=== PATIENT | female | born 1950 | race Caucasian/White ===

== ENCOUNTER 2017-02-27 12:37 | Emergency (ER) | payer SELFPAY ==
[~2017-02-27] VITALS: Ht 152.4 cm; Wt 49.3 kg
[~2017-02-27 12:37] MED LIST: ASPI-650 PO; INSU100V8 SQ; IRBE150T25 PO; METF500T4 PO; OLAN5TAB9 PO
[2017-02-27] MEDS ORDERED: LORazepam 2 MG/ML, 1ML ONE (13:24)
[2017-02-27] MEDS ORDERED: SODIUM CHLORIDE FLUSH 10ML SYR IVF ONE (13:30)
[2017-02-27] MEDS ORDERED: LORazepam 2 MG/ML, 1ML IVP ONE (13:30)
[2017-02-27] MEDS ORDERED: ALBUTEROL SULFATE 2.5 MG/3 ML NPPB ONE (13:30)
[2017-02-27 13:38] LABS: ASPARTATE AMINO TRANSFERASE 14 U/L (15-37); BLOOD UREA NITROGEN 12 mg/dL (7-18)
[2017-02-27] MEDS ORDERED: ALBUTEROL SULFATE 2.5 MG/3 ML ONE (13:42)
[2017-02-27 13:44] LABS: IS PT STATUS REG ER OR PRE ER? YES
[2017-02-27 15:46] VITALS: BP 97/67
== END 2017-02-27 15:49 | disposition home or self-care (01) ==
LOC: ED 15:30
DX: R06.00 Dyspnea, unspecified (principal); E11.65 Type 2 diabetes mellitus with hyperglycemia; E87.1 Hypo-osmolality and hyponatremia; I10 Essential (primary) hypertension
CPT/HCPCS: 36415; 71020; 80053; 83880; 84484; 85025; 85379; 93005; 94640; 96374; 99285; J2060; J7613

== ENCOUNTER 2017-03-09 20:07 | Inpatient (IN) | payer SELFPAY ==
[~2017-03-09] VITALS: Ht 154.9 cm; Wt 50.6 kg
[2017-03-09] MEDS ORDERED: SODIUM CHLORIDE 0.9% 1,000 ML IV ONE (20:35)
[2017-03-09] MEDS ORDERED: SODIUM CHLORIDE 0.9% 1,000ML IVBOLUS ONE (21:00)
[2017-03-09] MEDS ORDERED: ONDANSETRON 2MG/ML, 2ML IVPush ONE (21:00)
[2017-03-09] MEDS ORDERED: LORazepam 2 MG/ML, 1ML IVPush ONE (21:00)
[2017-03-09] MEDS ORDERED: ONDANSETRON 2MG/ML, 2ML ONE (21:47)
[2017-03-09] MEDS ORDERED: LORazepam 2 MG/ML, 1ML ONE (21:47)
[2017-03-09 21:48] LABS: ASPARTATE AMINO TRANSFERASE 20 U/L (15-37); BLOOD UREA NITROGEN 12 mg/dL (7-18)
[2017-03-09] MEDS ORDERED: METF500T4 PO (22:00)
[2017-03-09] MEDS ORDERED: ESCI20TA PO (22:00)
[2017-03-09] MEDS ORDERED: GLIP5TAB10 PO (22:01)
[2017-03-09] MEDS ORDERED: LOSA100T6 PO (22:01)
[2017-03-09] MEDS ORDERED: ONDANSETRON 2MG/ML, 2ML IVPush PRN (23:00)
[2017-03-09] MEDS ORDERED: POLYETHYLENE GLYCOL 17 GM PACKET PO PRN (23:00)
[2017-03-09] MEDS ORDERED: DOCUSATE 100 MG CAPSULE PO PRN (23:00)
[2017-03-09] MEDS ORDERED: morphine SULFATE 10 MG/ML, 1ML IVPush PRN (23:00)
[2017-03-10 02:55] VITALS: BP 122/76
[2017-03-10] MEDS: SODIUM CHLORIDE 0.9% 1,000 ML IV SCH ×2 (03:29→11:10)
[2017-03-10 06:38] VITALS: BP 135/80
[2017-03-10] MEDS: INSULIN ASPART 100 UNITS/ML, PEN SQ-INSULIN SCH ×4 (07:00→20:13)
[2017-03-10 07:13] LABS: BLOOD UREA NITROGEN 9 mg/dL (7-18)
[2017-03-10] MEDS: ENOXAPARIN 40 MG/0.4 ML SQ SCH (07:56)
[2017-03-10] MEDS: LOSARTAN 50MG TABLET PO SCH (07:56)
[2017-03-10] MEDS: SENNA/DOCUSATE TABLET PO SCH (07:56)
[2017-03-10 15:07] VITALS: BP 121/71
[2017-03-10] MEDS: ACETAMINOPHEN 325 MG TABLET PO PRN (20:10)
[2017-03-10 20:54] VITALS: BP 131/81
[2017-03-11 01:44] VITALS: BP 114/74
[2017-03-11 06:37] LABS: BLOOD UREA NITROGEN 9 mg/dL (7-18)
[2017-03-11] MEDS: INSULIN ASPART 100 UNITS/ML, PEN SQ-INSULIN SCH ×4 (07:00→21:00)
[2017-03-11 08:25] VITALS: BP 123/73
[2017-03-11] MEDS: SENNA/DOCUSATE TABLET PO SCH (08:40)
[2017-03-11] MEDS: ENOXAPARIN 40 MG/0.4 ML SQ SCH (08:48)
[2017-03-11] MEDS: LOSARTAN 50MG TABLET PO SCH (08:48)
[2017-03-11] MEDS: ACETAMINOPHEN 325 MG TABLET PO PRN (08:48)
[2017-03-11 14:47] VITALS: BP 109/68
[2017-03-11 20:26] VITALS: BP 134/83
[2017-03-11] MEDS: HYDROcodone/APAP 5/325 TABLET PO PRN (22:47)
[2017-03-12 01:17] VITALS: BP 120/73
[2017-03-12 05:10] LABS: BLOOD UREA NITROGEN 12 mg/dL (7-18)
[2017-03-12] MEDS: INSULIN ASPART 100 UNITS/ML, PEN SQ-INSULIN SCH (07:00)
[2017-03-12] MEDS: HYDROcodone/APAP 5/325 TABLET PO PRN (08:14)
[2017-03-12] MEDS: SENNA/DOCUSATE TABLET PO SCH (08:39)
[2017-03-12] MEDS: LOSARTAN 50MG TABLET PO SCH (08:41)
== END 2017-03-12 12:37 | disposition home or self-care (01) | DRG 641 ==
LOC: ED 22:32 → EDIP 22:47 → SUATTDRO 22:51 → 3NE 03-10 00:51 → DCLOUNGE 03-12 12:05
PROVIDERS: ADMIT Family Medicine; ATTEND Family Medicine
DX: E87.1 Hypo-osmolality and hyponatremia (principal); E86.0 Dehydration; I10 Essential (primary) hypertension; E11.9 Type 2 diabetes mellitus without complications; R10.9 Unspecified abdominal pain; Z83.3 Family history of diabetes mellitus; Z90.49 Acquired absence of other specified parts of digestive tract
CPT/HCPCS: 36415; 76700; 80048; 80053; 81003; 82010; 82040; 82436; 82570; 82800; 82962; 83036; 83690; 83735; 84133; 84300; 85025; 96374; 96375; J1650; J1815; J2405; J2060; J7030

== ENCOUNTER 2017-05-10 16:49 | Observation (INO) | payer OTHER ==
[~2017-05-10] VITALS: Ht 157.5 cm; Wt 50.3 kg
[~2017-05-10 16:49] MED LIST changes: +ESCI20TA PO; +GLIP5TAB10 PO; +LOSA100T6 PO
[2017-05-10] MEDS ORDERED: SODIUM CHLORIDE FLUSH 10ML SYR IVF ONE (17:30)
[2017-05-10] MEDS ORDERED: ASPIRIN 81 MG TABLET CHEW PO ONE (17:30)
[2017-05-10 17:38] LABS: HEMATOCRIT 43.3 % (34.6-47.8); HEMOGLOBIN 14.6 g/dL (11.7-16.4); WHITE BLOOD COUNT 6.2 x10^3/uL (3.4-10)
[2017-05-10 17:44] LABS: BLOOD UREA NITROGEN 14 mg/dL (7-18)
[2017-05-10 17:49] LABS: IS PT STATUS REG ER OR PRE ER? YES
[2017-05-10] MEDS ORDERED: ASPIRIN 81 MG TABLET CHEW ONE (17:50)
[2017-05-10] MEDS ORDERED: AMLO10TA2 PO (17:57)
[2017-05-10] MEDS ORDERED: OMNIPAQUE 350 MG/ML, 100ML BOTTLE ONE (18:48)
[2017-05-10] MEDS ORDERED: TEMAZEPAM 15 MG CAPSULE PO PRN (22:00)
[2017-05-10] MEDS ORDERED: ENALAPRILAT 1.25 MG/ML, 2ML IVPush PRN (22:00)
[2017-05-10] MEDS ORDERED: ONDANSETRON ODT 4 MG PO PRN (22:00)
[2017-05-10] MEDS ORDERED: morphine SULFATE 10 MG/ML, 1ML IVPush PRN (22:00)
[2017-05-10] MEDS ORDERED: DOCUSATE 100 MG CAPSULE PO PRN (22:00)
[2017-05-10 22:32] VITALS: BP 137/83
[2017-05-10] MEDS: SODIUM CHLORIDE 0.9% 1,000 ML IV SCH (23:12)
[2017-05-10] MEDS: HEPARIN 5,000 UNITS/ML, 1ML SQ SCH (23:13)
[2017-05-10 23:59] LABS: IS PT STATUS REG ER OR PRE ER? NO
[2017-05-11 02:10] VITALS: BP 150/88
[2017-05-11 05:07] LABS: HEMATOCRIT 42.4 % (34.6-47.8); HEMOGLOBIN 14.3 g/dL (11.7-16.4); WHITE BLOOD COUNT 6.4 x10^3/uL (3.4-10)
[2017-05-11 05:16] LABS: BLOOD UREA NITROGEN 13 mg/dL (7-18)
[2017-05-11 05:26] LABS: IS PT STATUS REG ER OR PRE ER? NO
[2017-05-11 07:39] VITALS: BP 145/82
[2017-05-11] MEDS ORDERED: REGADENOSON 0.4 MG/5 ML SYRINGE ONE (08:13)
[2017-05-11] MEDS: AMLODIPINE 5 MG TABLET PO SCH (08:22)
[2017-05-11] MEDS: HEPARIN 5,000 UNITS/ML, 1ML SQ SCH ×3 (08:22→22:39)
[2017-05-11] MEDS: LOSARTAN 50MG TABLET PO SCH (08:22)
[2017-05-11] MEDS: SODIUM CHLORIDE 0.9% 1,000 ML IV SCH (08:22)
[2017-05-11] MEDS: ACETAMINOPHEN 325 MG TABLET PO PRN ×2 (09:02→18:15)
[2017-05-11 14:30] VITALS: BP 126/78
[2017-05-11 18:55] VITALS: BP 126/77
[2017-05-12 02:15] VITALS: BP 145/82
[2017-05-12] MEDS: HEPARIN 5,000 UNITS/ML, 1ML SQ SCH (07:00)
[2017-05-12 07:12] VITALS: BP 107/69
[2017-05-12] MEDS: AMLODIPINE 5 MG TABLET PO SCH (09:25)
[2017-05-12] MEDS: LOSARTAN 50MG TABLET PO SCH (09:25)
[2017-05-12] MEDS: ACETAMINOPHEN 325 MG TABLET PO PRN (09:31)
[2017-05-12] MEDS ORDERED: AMLO2.5T PO (12:06)
[2017-05-12] MEDS ORDERED: OMEP20CA14 PO (12:06)
== END 2017-05-12 12:45 | disposition home or self-care (01) ==
LOC: ED 18:38 → INTOOBSV 20:41 → EDIP 20:41 → 5SO 22:02 → 3NE 05-11 18:36
PROVIDERS: ADMIT Hospitalist; ATTEND Hospitalist
DX: R07.89 Other chest pain (principal); E11.65 Type 2 diabetes mellitus with hyperglycemia; E11.43 Type 2 diabetes mellitus with diabetic autonomic (poly)neuropathy; E86.0 Dehydration; E87.1 Hypo-osmolality and hyponatremia; F32.9 Major depressive disorder, single episode, unspecified; I10 Essential (primary) hypertension; I70.0 Atherosclerosis of aorta; K59.00 Constipation, unspecified
CPT/HCPCS: 36415; 71010; 74177; 78452; 80048; 80061; 81003; 82040; 83036; 83735; 84100; 84484; 85025; 93005; 93017; 93306; 96360; 96361; 96372; 99285; A9502; C9898; G0378; J1644; J2785; J7030; Q9967

== ENCOUNTER 2017-06-17 16:39 | Emergency (ER) | payer OTHER ==
[~2017-06-17] VITALS: Ht 152.4 cm; Wt 50.3 kg
[~2017-06-17 16:39] MED LIST changes: +AMLO10TA2 PO; +AMLO2.5T PO; +OMEP20CA14 PO
[2017-06-17] MEDS ORDERED: SODIUM CHLORIDE 0.9% 1,000 ML IV ONE (17:03)
[2017-06-17 17:24] LABS: HEMOGLOBIN 13.5 g/dL (11.7-16.4); WHITE BLOOD COUNT 6.1 x10^3/uL (3.4-10)
[2017-06-17] MEDS ORDERED: SODIUM CHLORIDE 0.9% 1,000ML IVBOLUS ONE (17:30)
[2017-06-17] MEDS ORDERED: SODIUM CHLORIDE FLUSH 10ML SYR IVF ONE (17:30)
[2017-06-17 17:36] LABS: BLOOD UREA NITROGEN 14 mg/dL (7-18)
[2017-06-17 17:40] LABS: ASPARTATE AMINO TRANSFERASE 16 U/L (15-37)
[2017-06-17 18:36] VITALS: BP 141/84
[2017-06-17] MEDS ORDERED: SODIUM CHLORIDE FLUSH 10ML SYR IVF PRN (19:00)
== END 2017-06-17 19:34 | disposition home or self-care (01) ==
LOC: ED 17:51 → EDIP 18:45 → UNDOADMIN 18:45 → ED 19:22
DX: E11.65 Type 2 diabetes mellitus with hyperglycemia (principal); E86.0 Dehydration; E87.1 Hypo-osmolality and hyponatremia; I10 Essential (primary) hypertension; Z90.49 Acquired absence of other specified parts of digestive tract
CPT/HCPCS: 36415; 71010; 80053; 81003; 82010; 82800; 82962; 83036; 83690; 83735; 85025; 93005; 99285

== ENCOUNTER 2018-01-18 19:07 | Emergency (ER) | payer SELFPAY ==
[~2018-01-18] VITALS: Ht 152.4 cm; Wt 55.2 kg
[2018-01-18 19:33] LABS: PH, VENOUS 7.407 pH (7.320-7.420)
[2018-01-18 19:42] LABS: BASOPHILS # (AUTO) 0.03 x10^3/uL (0-0.1); BASOPHILS % (AUTO) 0 % (0-1); EOSINOPHILS # (AUTO) 0.09 x10^3/uL (0-0.4); EOSINOPHILS % (AUTO) 1 % (1-7); LYMPHOCYTES # (AUTO) 2.09 x10^3/uL (1-3.4); LYMPHOCYTES % (AUTO) 28 % (22-44); MD NO; MEAN CORPUSCULAR HEMOGLOBIN 32.9 pg (27.0-34.8); MEAN CORPUSCULAR HGB CONC 33.8 g/dL (32.4-35.8); MEAN CORPUSCULAR VOLUME 97.3 fL (80-100); MEAN PLATELET VOLUME 8.1 fL (7.4-10.4); MONOCYTES # (AUTO) 0.94 x10^3/uL (0.2-0.8); MONOCYTES % (AUTO) 12 % (2-9); NEUTROPHILS % (AUTO) 58 % (42-75); PLATELET COUNT 246 x10^3/uL (130-400); RED BLOOD COUNT 4.01 x10^6/uL (3.82-5.3); RED CELL DISTRIBUTION WIDTH 12.9 % (9.6-15.2)
[2018-01-18 19:47] LABS: ALBUMIN 3.6 g/dL (3.4-5.0); ANION GAP 7 mmol/L (5-15); CHLORIDE 100 mmol/L (98-107); CREATININE 0.78 mg/dL (0.55-1.02)
[2018-01-18 19:50] LABS: TROPONIN I 0.019 ng/mL (0.000-0.045)
[2018-01-18] MEDS ORDERED: METF500T27 PO (19:50)
[2018-01-18] MEDS ORDERED: INSULIN (19:50)
[2018-01-18 19:52] LABS: ACETONE, SERUM Negative (Negative)
[2018-01-18 20:45] LABS: MICROSCOPIC NOT IND
[2018-01-18 21:02] LABS: CULTURE INDICATED? NO
[2018-01-18 22:33] VITALS: BP 142/70
== END 2018-01-18 22:33 | disposition home or self-care (01) ==
LOC: ED 22:31
DX: R53.1 Weakness (principal); I10 Essential (primary) hypertension; E11.9 Type 2 diabetes mellitus without complications; Z90.49 Acquired absence of other specified parts of digestive tract; Z79.4 Long term (current) use of insulin
CPT/HCPCS: 36415; 71045; 80048; 81003; 82010; 82040; 82803; 82962; 84484; 85025; 93005; 99285